=== PATIENT | female | born 1985 | race African-American/Black ===

== ENCOUNTER 2017-02-17 11:34 | Emergency (ER) | payer OTHER ==
[~2017-02-17] VITALS: Ht 160 cm; Wt 85.5 kg
[~2017-02-17 11:34] MED LIST: ADVAIR 250/501 DISK IH; BENZTROPINE MESY2 MG PO; CELEXA20 MG PO; CLONAZEPAM1 MG PO; COGENTIN0.5 MG PO; DEPAKENE250 MG PO; DEPAKOTE500 MG PO; DEPO-PROVE150 MG/1 M IM; GLUCOSAMINE CH1 EACH PO; HEPATITIS B IMMUNE GLOBULIN IM; IRON325 MG PO; KLONOPIN0.125 MG PO; LAMICTAL200 MG PO; LASIX10 MG PO; MOTRIN400 MG PO; MYSOLINE50 MG PO; NEURONTIN100 MG PO; OYST-CAL-500500 MG PO; RISPERDAL2 MG PO; RISPERDAL25 MG/2 ML IM; SENNA LAX8.6 MG PO; SYNTHROID25 MCG PO; TYLENOL 8 HOUR650 MG PO; TYLENOL WITH C1 EACH PO; VASOTEC20 MG NG; VASOTEC5 MG PO; VITAMIN C500 M1 PO
[2017-02-17 12:41] LABS: ADD MIUA? YES; BILIRUBIN MODERATE; BLOOD NEGATIVE; COLOR AMBER ((YELLOW)); GLUCOSE (STRIP) NEGATIVE; KETONES NEGATIVE; LEUKOCYTES MODERATE; NITRITE NEGATIVE; PROTEIN (STRIP) >=500; SPECIFIC GRAVITY 1.039 (1.000-1.030); UROBILINOGEN 0.2 MG/DL (0.2-1.0)
[2017-02-17 13:01] LABS: BACTERIA RARE /HPF; EPITHELIAL CELLS 1+ /HPF; GRANULAR CASTS 0-5 /LPF; HYALINE CASTS 0-5 /LPF; MUCUS TRACE /LPF; URIC ACID CRYSTALS 1+ /HPF; WHITE BLOOD CELLS TNTC /HPF (0-5)
[2017-02-17 13:08] LABS: HEMATOCRIT 41.9 % (36.0-46.0); MCHC 33.7 G/DL (30.0-36.0); MCV 92.1 FL (83-99); RBC DIS.WIDTH-CV 13.6 % (11.8-14.6); RBC DIS.WIDTH-SD 46.6 % (39-53); RED BLOOD COUNT 4.55 M/uL (3.80-5.20); WHITE BLOOD COUNT 7.6 K/uL (4.1-10.2)
[2017-02-17 13:11] LABS: CHLORIDE 104 mEq/L (99-109); POTASSIUM 4.6 mEq/L (3.7-5.4); SODIUM 136 mEq/L (136-147)
[2017-02-17 13:14] LABS: GLUCOSE 100 mg/dL (70-99)
[2017-02-17 13:15] LABS: ICTOTEST NEGATIVE
[2017-02-17 13:15] LABS: ANION GAP 11 MEQ/L (2-14)
[2017-02-17 13:16] LABS: TOTAL BILIRUBIN 0.4 mg/dL (0.0-1.0)
[2017-02-17 13:17] LABS: ALKALINE PHOSPHATASE 66 IU/L (3-129); GFR ESTIMATE (CALCULATED) > 59 mL/min/
[2017-02-17 13:18] LABS: UREA NITROGEN (BUN) 7 mg/dL (9-23)
[2017-02-17 13:27] LABS: QUANTITATIVE HCG < 4.0 MIU/ML
[2017-02-17] MEDS ORDERED: TESSALON PERLE100 MG PO (13:52)
[2017-02-17] MEDS ORDERED: LEVAQUIN750 MG PO (13:52)
[2017-02-17 14:40] VITALS: BP 112/81
[2017-02-17 14:45] LABS: MEAN PLAT.VOLUME 12.8 uM^3 (9.5-12.4); PLAT.SUFFICIENCY DECREASED; PLATELET COUNT 93 K/uL (156-360)
== END 2017-02-17 14:41 ==
LOC: EME 11:34
PROVIDERS: Nurse Practitioner Family
DX: J18.9 Pneumonia, unspecified organism (principal); N39.0 Urinary tract infection, site not specified; J45.909 Unspecified asthma, uncomplicated; I10 Essential (primary) hypertension; E03.9 Hypothyroidism, unspecified; G47.30 Sleep apnea, unspecified; F79 Unspecified intellectual disabilities
CPT/HCPCS: 71020; 74000; 80053; 81003; 84702; 85027; 87086; 87651 90; 99281; 99283

== ENCOUNTER 2017-06-24 06:49 | Day surgery (SDC) | payer OTHER ==
[~2017-06-24] VITALS: Ht 162.6 cm; Wt 90.3 kg
[~2017-06-24 06:49] MED LIST changes: +ACETAMINOPHEN325 M1 PO; +ARIPIPRAZOLE15 MG PO; +ATIVAN2 MG PO; +BENZTROPINE MESY1 MG PO; +COLACE100 MG PO; +DAILY VITAMIN1 EAC5 PO; +DEPO-PROVER400 MG/ML IM; +DESMOPRESSIN A0.2 MG PO; +FLUPHENAZINE H2.5 MG PO; +FLUPHENAZINE HCL5 MG PO; +IBUPROFEN800 MG PO; +INDERAL80 MG PO; +LAMICTAL25 MG PO; +LEVAQUIN750 MG PO; +LEVOTHYROXINE75 MCG PO; +LORAZEPAM1 MG PO; +MELATONIN3 MG PO; +MIRALAX119 GM PO; +OLANZAPINE20 MG PO; +PROAIR HFA8.5 GM IH; +TESSALON PERLE100 MG PO; +VITAMIN D-3 401 EACH PO
[2017-06-24 09:14] VITALS: BP 142/101
[2017-06-24 09:53] LABS: METH RESISTANT S AUREUS PCR NEGATIVE (NEGATIVE)
[2017-06-24 09:56] LABS: PROBE CHECK PASS; SPECIMEN PROCESSING CONTROL PASS
[2017-06-24] MEDS ORDERED: NORCO 5/3251 TABLET PO (11:49)
[2017-06-24 13:11] VITALS: BP 123/82
[2017-06-24 13:53] VITALS: BP 131/86
== END 2017-06-24 13:56 | disposition home or self-care (01) ==
LOC: SDC 06:49
PROVIDERS: Surgery
PROC: 0JH63WZ Insertion of Totally Implantable Vascular Access Device into Chest Subcutaneous Tissue and Fascia, Percutaneous Approach (ICD-10-PCS; principal; 2017-06-24)
DX: Z45.2 Encounter for adjustment and management of vascular access device (principal); I87.8 Other specified disorders of veins; F32.9 Major depressive disorder, single episode, unspecified; F29 Unspecified psychosis not due to a substance or known physiological condition; F79 Unspecified intellectual disabilities; I10 Essential (primary) hypertension; J45.909 Unspecified asthma, uncomplicated; E03.9 Hypothyroidism, unspecified; G47.30 Sleep apnea, unspecified; Z88.0 Allergy status to penicillin
CPT/HCPCS: 71010; 71020; 87641; C1751; J1580; J1885; J2250; J2405; J3010; J3370; J7050; S0030

== ENCOUNTER 2017-11-09 07:10 | Day surgery (SDC) | payer OTHER ==
[~2017-11-09] VITALS: Ht 157.5 cm; Wt 86.1 kg
[~2017-11-09 07:10] MED LIST changes: +HYDROCHLOROTHIA25 MG PO; +LAMICTAL100 MG PO; -LAMICTAL25 MG PO; +LUBRIDERM DAIL177 ML TP; +NIZORAL SHAMPO120 ML TP; +NORCO 5/3251 TABLET PO; +VITAMIN D400 UNIT PO; +ZYPREXA20 MG PO
[2017-11-09 07:56] VITALS: BP 134/97
[2017-11-09] MEDS ORDERED: NORCO 5/3251 TABLET PO (09:25)
[2017-11-09 10:34] VITALS: BP 130/89
[2017-11-09 11:20] VITALS: BP 127/82
== END 2017-11-09 11:33 ==
LOC: SDC 07:10
DX: Z45.2 Encounter for adjustment and management of vascular access device (principal); I87.8 Other specified disorders of veins; F79 Unspecified intellectual disabilities; J45.909 Unspecified asthma, uncomplicated; E03.9 Hypothyroidism, unspecified; L40.9 Psoriasis, unspecified; G47.30 Sleep apnea, unspecified; Z88.0 Allergy status to penicillin; Z88.2 Allergy status to sulfonamides; Z88.8 Allergy status to other drugs, medicaments and biological substances
CPT/HCPCS: 80048; 81003; 84702; 85027; J0330; J2250; S0020